=== PATIENT | female | born 1965 | race Caucasian/White ===

== ENCOUNTER 2021-10-21 12:59 | Emergency (ER) | payer MEDICAID, SELFPAY ==
--- NOTE | 2021-10-21 13:09 | ED.WOUNDLAC ---
HPI - Wound/Laceration General Chief Complaint: Wound/Laceration Stated Complaint: Skin Sore Time Seen by Provider: 10/21/21 13:09 Source: patient and RN notes reviewed History of Present Illness HPI narrative: Patient is a 55-year-old female who presents the urgent care with complaints of an abscess to the right buttocks. Patient states that she noticed it 3 days ago and has become increased in size and pain. Patient denies of any fever, chills, nausea or vomiting. Patient states that it has been draining slightly. States that she had 3 500 mg amoxicillin tablets and has taken them without any improvement. No other acute complaints. No acute distress noted. Patient on the plan of care. Some parts of this dictation were generated by voice recognition software and may contain typographical and/or grammatical inaccuracies. Related Data Home Medications Medication Instructions Recorded Confirmed aripiprazole [Abilify] 2 mg PO HS 10/21/21 10/21/21 baclofen 10 mg PO TID 10/21/21 10/21/21 duloxetine 60 mg PO DAILY 10/21/21 10/21/21 gabapentin 600 mg PO TID 10/21/21 10/21/21 ibuprofen 800 mg PO TID 10/21/21 10/21/21 levothyroxine [Synthroid] 300 mcg PO DAILY 10/21/21 10/21/21 montelukast [Singulair] 10 mg PO DAILY 10/21/21 10/21/21 trazodone 10/21/21 Allergies Allergy/AdvReac Type Severity Reaction Status Date / Time No Known Allergies Allergy Verified 10/21/21 13:27 Review of Systems Review of Systems: CONSTITUTIONAL: Denies fever, chills, or sweats. EYES: Denies visual changes, redness, or discharge. ENT: Denies rhinorrhea, congestion, sore throat, or otalgia. CARDIOVASCULAR: Denies chest pain, palpitations, or edema. RESPIRATORY: Denies cough or dyspnea. GASTROINTESTINAL: Denies abdominal pain, nausea, vomiting, or diarrhea. GENITOURINARY: Denies dysuria or hematuria. SKIN: Reports of a large abscess to the right buttocks MUSCULOSKELETAL: Denies back pain, joint pain, or myalgia. NEUROLOGIC: Denies headache, numbness, or weakness. All other systems reviewed are negative, except as documented in HPI. PMFSH Comments At the time of my signature, I reviewed and agree with the nursing past medical, surgical, social, and family history. There is no relevant family history pertinent to the patient complaint. Exam Narrative: GENERAL: This is a well-nourished, well-developed patient, in no apparent distress. HEAD: normocephalic, atraumatic. EYES: PERRL. Sclera clear/white. Vision is grossly intact. EARS: External ears normal NOSE: External nose normal with no obvious nasal discharge, nares without redness, no rhinorrhea. THROAT: Mucous membranes moist, posterior pharynx clear. NECK: Neck supple RESPIRATORY: Clear to auscultation. Breath sounds equal bilaterally. No wheezes, rales, or rhonchi. SKIN: 12 x 12 cm circular erythema with 8 x 8 cm firm center with 2 x 2 raised center with scant drainage NEURO: awake, alert, and oriented to person, place and time. There were no obvious focal neurologic abnormalities. EXTREMITIES: No clubbing, cyanosis, or edema. Course Course Level of Care: Express Care Visit Vital Signs Vital signs: Vital Signs Temperature 99.7 F H 10/21/21 13:11 Pulse Rate 116 H 10/21/21 13:11 Respiratory Rate 22 H 10/21/21 13:11 Blood Pressure 140/80 10/21/21 13:11 Pulse Oximetry 100 10/21/21 13:11 Temperature 99.7 F H 10/21/21 13:11 Pulse Rate 116 H 10/21/21 13:11 Respiratory Rate 22 H 10/21/21 13:11 Blood Pressure 140/80 10/21/21 13:11 Pulse Oximetry 100 10/21/21 13:11 Reviewed Procedures Abscess I/D other: Side (if applicable): right Packing used?: none I&D Results: Pus and Blood Complications: pain Abcess I&D Additional Comments: Abscess to the right buttocks incised with 11 blade after Betadine cleanse. Moderate amount of pus and blood removed. Patient tolerated well. No complications MDM - Wound/Laceration MDM Narrative Me
[2021-10-21 13:11] VITALS: BP 140/80; PULSE 116; RESP 22; TEMP 37.6; O2SAT 100
== END 2021-10-21 14:00 | disposition home or self-care (01) ==
PROVIDERS: Emergency Provider Nurse Practitioner Family
DX: L02.31 Cutaneous abscess of buttock (principal); F32.A Depression, unspecified
CPT/HCPCS: 10060; 87070; 87147; 87186; 87205; 99213; G0463